=== PATIENT | male | born 1960 | race Caucasian/White ===

== ENCOUNTER → 2016-08-31 | Day surgery (SDC) | payer OTHER ==
[2016-08-29 15:02] VITALS: Ht 177.8 cm; Wt 151.9 kg
--- NOTE | 2016-08-29 15:27 | PAT Medication Instructions ---
Service Date Aug 29, 2016. Current Home Medication List Cyclobenzaprine Hcl (Flexeril), 10 MG PO TID PRN for Pain Meloxicam (Meloxicam), 15 MG PO HS Multiple Vitamins W/ Minerals (Airborne), 1 TAB PO HS Medication Instructions For Your Scheduled Surgery Meloxicam (Meloxicam), 15 MG PO HS (per surgeon for instructions) - Hold the following medications the morning of surgery: Cyclobenzaprine Hcl (Flexeril), 10 MG PO TID PRN for Pain - Take the following medications as scheduled the night before surgery: Multiple Vitamins W/ Minerals (Airborne), 1 TAB PO HS Cyclobenzaprine Hcl (Flexeril), 10 MG PO TID PRN for Pain If you have any questions please call us at [phone] (Megan Jung PA-C) or [phone] or [phone]
[2016-08-29 16:10] LABS: HEMATOCRIT 45.6 % (42-52); MEAN CELL VOLUME 87.9 fL (80-100); MEAN CORPUSCULAR HEMOGLOBIN 29.7 pg (25-34); MEAN CORPUSCULAR HGB CONC 33.8 g/dl (32-36); MEAN PLATELET VOLUME 9.8 fL (7.4-10.4); PLATELET COUNT 244 K/uL (130-400); RED BLOOD COUNT 5.19 M/uL (4.7-6.1); WHITE BLOOD COUNT 10.15 K/uL (4.8-10.8)
[2016-08-29 16:34] LABS: URINE APPEARANCE CLEAR (CLEAR); URINE BILIRUBIN NEG (NEG); URINE COLOR YELLOW; URINE EPITHELIAL CELL AUTO >30 /lpf (0-5); URINE NITRITE NEG (NEG); URINE PH 6.5 (4.5-7.5); UROBILINOGEN NEG (NEG)
[2016-08-29 16:42] LABS: BUN/CREATININE RATIO 15.8 (10-20)
[2016-08-29 16:44] LABS: MANUAL MICROSCOPIC REQUIRED? NO; REVIEW REQ? NO
[2016-08-29 16:47] LABS: POTASSIUM 4.2 mmol/L (3.5-5.1)
[~2016-08-31] VITALS: Ht 177.8 cm; Wt 151.9 kg
[~2016-08-31] MED LIST: ATROPINE SULFATE 0.1 MG/ML 5ML SYR IV PRN; CALC0.2510 PO; CIPR-255 PO; CIPROFLOXACIN 400MG / D5W IV SCH; CYCL10TA6 PO; DEXAMETHASONE SOD INJ 4 MG/ML VIAL ONE; EpHEDrine SULFATE INJ 50 MG/ML AMP IV PRN; FENTANYL CITRATE INJ 50 MCG/1 ML 2 ML VIAL IV PRN; FENTANYL CITRATE INJ 50 MCG/1 ML 2 ML VIAL ONE; HYDR-3419 PO; HYDR-5688 PO; LACTATED RINGER'S 1000ML 1,000 ML IV SCH; LIDOCAINE HCL 2% 2 ML VIAL (20MG/ML) ONE; MELO15TA4 PO; MIDAZOLAM HCL 1 MG/ML 2ML VIAL ONE; MULT1CHW28 PO; MULTCHW PO; ONDANSETRON INJ 2 MG/ML 2 ML VIAL ONE; OXYC-57 PO; OXYCODONE/ACETAMINOPHEN 5-325 TAB PO PRN; PHEN-775 PO; PROPOFOL IV EMULSION 10 MG/ML 20 ML VIAL IV ONE
--- NOTE | 2016-08-31 10:19 | DIAGNOSTIC IMAGING REPORT ---
KUB CLINICAL HISTORY: N20.0 [id number] nephrocalcinosis COMPARISON STUDY: No previous studies for comparison. FINDINGS: Punctate calcification peripheral aspect mid pole left kidney. This measures 2 mm. Calcification lower pole right kidney measuring 11 x 4 mm up. Several pelvic vascular calcifications. Nonobstructive bowel pattern. IMPRESSION: 1. 11 x 4 mm lower pole right renal calcification. 2. 2 mm punctate peripheral mid pole left renal calcification. Electronically signed by: Tc Chacon M.D. 08/31/2016 10:18 AM Dictated Date/Time: 08/31/2016 10:17 AM
--- NOTE | 2016-08-31 12:14 | History & Physical Bridge Note ---
H&P Re-Evaluation Bridge Note: I have examined the patient, reviewed the History & Physical and in the interval since the performance of the History & Physical I have noted the following changes of clinical significance: No changes noted
--- NOTE | 2016-08-31 12:59 | [facility] Post Operative Brief Note ---
Immediate Operative Summary Operative Date Aug 31, 2016. Pre-Operative Diagnosis RIGHT RENAL STONE Post-Operative Diagnosis SAME Procedure(s) Performed RIGHT ESWL Surgeon ABISAI Wagon Driver Surgeon(s) NONE Estimated Blood Loss NONE Findings RIGHT RENAL STONE Specimens NONE
--- NOTE | 2016-08-31 13:01 | Discharge Instructions-SurgCtr ---
Discharge Instructions Date of Service Aug 31, 2016. Visit Reason for Visit: Stones Discharge Discharge Diagnosis / Problem: STONE Discharge Goals Goal(s): Therapeutic intervention Medications Stopped Medications Name(s): Meloxicam, last dose 1 week ago(08/23/16) Activity Recommendations Activity Limitations: resume your previous activity (TAKE IT EASY TODAY) MEDICATIONS: Resume previous medications unless instructed otherwise by your surgeon. Resume pre-ESWL medication except for aspirin, coumadin or other blood thinners. __ Toradol 10 mg every 6 hours for initial pain. __ Lortab 5 mg 1-2 every 4 hours for pain. _X_ Percocet 5 mg 1-2 every 4 hours for pain. __ Macrodantin 50 mg x 3 a day. __ Flomax 1 tab daily one half (1/2) hour after supper. SPECIAL CARE INSTRUCTIONS: 1. Get KUB (x-ray) _X_ day before or day of office visit and bring x-ray to office __ get x-ray 2 days before and tell office you are getting x-rays when you call for the appointment. 2. Strain ALL urine. 3. Please call if you have a fever, chills, severe pain, or constant dribbling of urine. 4. Office phone number . FOLLOW UP VISIT: Please call the office to schedule a follow-up appointment at . Anesthesia . Post Anesthesia Instructions: If you have had General Anesthesia or IV Sedation: * Do not drive today. * Resume driving when surgeon permits. * Do not make important decisions or sign legal documents today. * Call surgeon for: 1. Temperature elevations greater than 101 degrees F. 2. Uncontrollable pain. 3. Excessive bleeding. 4. Persistent nausea and vomiting. 5. Medication intolerance (nausea, vomiting or rash). * For nausea and vomiting use only clear liquids such as: tea, soda, bouillon until nausea subsides, then gradually increase diet as tolerated. * If you have any concerns or questions, call your surgeon's office. If physician is unavailable and it is an emergency, call 911 or go to the nearest emergency room. . Diet Recommendations Home Diet: resume previous diet Procedures Procedures Performed: RIGHT ESWL Pending Studies Studies pending at discharge: no Medical Emergencies . Who to Call and When: Medical Emergencies: If at any time you feel your situation is an emergency, please call 911 immediately. . Non-Emergent Contact Non-Emergency issues call your: Urologist . . "Provider Documentation" section prepared by Benedict Arana. [facility] Drug Monitoring Program Search Results: patient reviewed within database
[2016-08-31 14:11] VITALS: TEMP 36.4
[2016-08-31 14:36] VITALS: BP 132/84; PULSE 57; O2SAT 98
--- NOTE | 2016-08-31 14:37 | Anesthesia Progress Nt - [facility] ---
Anesthesia Post Op Note Date & Time Aug 31, 2016 at 14:36 Vital Signs Pain Intensity: 0 Vital Signs Past 12 Hours Date Time Temp Pulse Resp B/P Pulse Ox O2 Delivery O2 Flow Rate FiO2 08/31/16 14:11 36.4 66 18 148/92 96 Room Air 08/31/16 14:06 67 11 08/31/16 14:06 69 11 96 08/31/16 14:05 153/79 08/31/16 14:05 37.1 96 Room Air 08/31/16 14:01 60 14 100 08/31/16 14:01 58 14 08/31/16 14:00 140/76 08/31/16 13:56 62 15 100 08/31/16 13:56 63 15 08/31/16 13:55 137/79 08/31/16 13:51 63 12 100 08/31/16 13:51 64 12 08/31/16 13:50 147/75 08/31/16 13:49 61 15 100 08/31/16 13:49 61 15 08/31/16 13:45 151/83 08/31/16 13:44 60 14 08/31/16 13:44 60 14 100 08/31/16 13:40 139/102 08/31/16 13:40 37.2 60 16 144/91 97 Mask 6 08/31/16 13:39 71 149/91 98 08/31/16 13:39 71 08/31/16 11:07 36.8 73 18 113/75 97 Room Air Notes Mental Status: alert / awake / arousable, participated in evaluation Pt Amnestic to Procedure: Yes Nausea / Vomiting: adequately controlled Pain: adequately controlled Airway Patency, RR, SpO2: stable & adequate BP & HR: stable & adequate Hydration State: stable & adequate Anesthetic Complications: no major complications apparent
--- NOTE | 2016-09-06 09:37 | OPERATIVE REPORT ---
DATE OF OPERATION: 08/31/2016 PREOPERATIVE DIAGNOSIS: Right renal calculus. POSTOPERATIVE DIAGNOSIS: Same. PROCEDURE: Extracorporeal shockwave lithotripsy. FINDINGS: KUB showed stone right kidney. SURGEON: Dr. Arana. DRAINS: None. COMPLICATIONS: None. SPECIMENS: None. INDICATIONS: The patient is a 55-year-old white male with a right renal stone being brought in for ESWL. DETAILS OF PROCEDURE: The patient was brought to the litho suite. He was correctly identified and the stone was visualized on his most recent x-rays. After the correct time out was performed the patient was positioned over the therapy head. An adequate level of anesthesia was administered. The extracorporeal shockwave lithotripsy treatment was then commenced. Please see the [facility] sheet for complete treatment summary. After completion of the procedure the patient was taken to the recovery room in stable condition. I attest to the content of the Intraoperative Record and any orders documented therein. Any exceptio ns are noted below.
== END | disposition home or self-care (01) ==
LOC: X.SURG 10:18
PROVIDERS: ATTEND Urology
DX: N20.0 Calculus of kidney (principal); N40.1 Benign prostatic hyperplasia with lower urinary tract symptoms; N13.8 Other obstructive and reflux uropathy; N35.9 Urethral stricture, unspecified; Z87.442 Personal history of urinary calculi; Z98.890 Other specified postprocedural states

== ENCOUNTER → 2016-09-17 | Outpatient (CLI) | payer OTHER ==
[~2016-09-17] MED LIST changes: -ATROPINE SULFATE 0.1 MG/ML 5ML SYR IV PRN; -CIPROFLOXACIN 400MG / D5W IV SCH; -DEXAMETHASONE SOD INJ 4 MG/ML VIAL ONE; -EpHEDrine SULFATE INJ 50 MG/ML AMP IV PRN; -FENTANYL CITRATE INJ 50 MCG/1 ML 2 ML VIAL IV PRN; -FENTANYL CITRATE INJ 50 MCG/1 ML 2 ML VIAL ONE; -LACTATED RINGER'S 1000ML 1,000 ML IV SCH; -LIDOCAINE HCL 2% 2 ML VIAL (20MG/ML) ONE; -MIDAZOLAM HCL 1 MG/ML 2ML VIAL ONE; -ONDANSETRON INJ 2 MG/ML 2 ML VIAL ONE; -OXYCODONE/ACETAMINOPHEN 5-325 TAB PO PRN; -PROPOFOL IV EMULSION 10 MG/ML 20 ML VIAL IV ONE
--- NOTE | 2016-09-17 08:43 | DIAGNOSTIC IMAGING REPORT ---
KUB CLINICAL HISTORY: N20.0 [id number] COMPARISON STUDY: No previous studies for comparison. FINDINGS: There is no pathologic bowel dilatation. There are surgical clips in the right upper quadrant consistent with a prior cholecystectomy. There is a right upper quadrant calcification consistent with a renal calculus. This measures 12 mm. There are nonspecific pelvic basin calcifications likely representing phleboliths. IMPRESSION: 12 mm right renal calculus Electronically signed by: Contreras Kirkland M.D. 09/17/2016 8:42 AM Dictated Date/Time: 09/17/2016 8:39 AM
== END | disposition home or self-care (01) ==
LOC: C.RAD 08:18
PROVIDERS: ATTEND Urology
DX: N20.0 Calculus of kidney (principal)

== ENCOUNTER → 2016-09-17 | Outpatient (CLI) | payer OTHER | END | disposition home or self-care (01) | LOC: C.LABSPEC 17:09 | PROVIDERS: ATTEND Urology | DX: N20.0 Calculus of kidney (principal) ==

== ENCOUNTER → 2016-09-21 | Outpatient (CLI) | payer OTHER ==
[~2016-09-21] MED LIST changes: -OXYC-57 PO
--- NOTE | 2016-09-21 08:28 | DIAGNOSTIC IMAGING REPORT ---
KUB CLINICAL HISTORY: Nephrolithiasis. Pre-lithotripsy. FINDINGS: 2 AP abdominal radiographs are compared to study dated 09/17/2016. There is unchanged appearance of a 1.2 cm calculus projecting over the right renal pelvis. No additional calcifications are clearly identified projecting over either kidney or along the course of the ureters. Phleboliths are observed in the pelvis. There is a nonobstructed abdominal bowel gas pattern. Cholecystectomy clips are seen in the right upper quadrant. The bony structures appear intact. IMPRESSION: Unchanged appearance of a 1.2 cm calculus projecting over the right renal pelvis as compared to 09/17/2016. Electronically signed by: Tian Juan M.D. 09/21/2016 8:26 AM Dictated Date/Time: 09/21/2016 8:25 AM
== END | disposition home or self-care (01) ==
LOC: C.RAD 06:55
PROVIDERS: ATTEND Urology
DX: N20.0 Calculus of kidney (principal)

== ENCOUNTER → 2016-09-21 | Day surgery (SDC) | payer OTHER ==
[2016-09-18 14:33] VITALS: Ht 177.8 cm; Wt 151.8 kg
[~2016-09-21] VITALS: Ht 177.8 cm; Wt 151.8 kg
[~2016-09-21] MED LIST changes: +ATROPINE SULFATE 0.1 MG/ML 5ML SYR IV PRN; +DEXAMETHASONE SOD INJ 4 MG/ML VIAL ONE; +EpHEDrine SULFATE INJ 50 MG/ML AMP IV PRN; +FENTANYL CITRATE INJ 50 MCG/1 ML 2 ML VIAL IV PRN; +FENTANYL CITRATE INJ 50 MCG/1 ML 2 ML VIAL ONE; +FLUMAZENIL 0.1 MG/1 ML 10 ML VIAL IV PRN; +HYDROmorphone INJ 2 MG/ML SYR/VIAL IV PRN; +LABETALOL HCL IV 5 MG/ML 20ML IV PRN; +LACTATED RINGER'S 1000ML 1,000 ML IV SCH; +LIDOCAINE HCL 2% 2 ML VIAL (20MG/ML) ONE; +MEPERIDINE HCL 25 MG/ML CARP IV PRN; +MIDAZOLAM HCL 1 MG/ML 2ML VIAL ONE; +NALOXONE HCL 0.4 MG/1 ML VIAL/CARP IV PRN; +ONDANSETRON INJ 2 MG/ML 2 ML VIAL IV PRN; +ONDANSETRON INJ 2 MG/ML 2 ML VIAL ONE; +PHENYLEPHRINE 100MCG/ML 5ML SYR IV PRN; +PROPOFOL IV EMULSION 10 MG/ML 20 ML VIAL IV ONE
[2016-09-21] MEDS: CIPROFLOXACIN 400MG / D5W IV SCH ×2 (08:08→08:52)
--- NOTE | 2016-09-21 10:24 | Discharge Instructions-SurgCtr ---
Discharge Instructions Date of Service Sep 21, 2016. Visit Reason for Visit: Stones Discharge Discharge Diagnosis / Problem: r renal stone Discharge Goals Goal(s): Decrease discomfort, Improve function, Improve disease control Medications Stopped Medications Name(s): HELD MELOXICAM FOR ONE WEEK Activity Recommendations Activity Limitations: per Instructions/Follow-up section (no driving on narcotics) Anesthesia . Post Anesthesia Instructions: If you have had General Anesthesia or IV Sedation: * Do not drive today. * Resume driving when surgeon permits. * Do not make important decisions or sign legal documents today. * Call surgeon for: 1. Temperature elevations greater than 101 degrees F. 2. Uncontrollable pain. 3. Excessive bleeding. 4. Persistent nausea and vomiting. 5. Medication intolerance (nausea, vomiting or rash). * For nausea and vomiting use only clear liquids such as: tea, soda, bouillon until nausea subsides, then gradually increase diet as tolerated. * If you have any concerns or questions, call your surgeon's office. If physician is unavailable and it is an emergency, call 911 or go to the nearest emergency room. . Diet Recommendations Home Diet: resume previous diet Procedures Procedures Performed: Right Extracorporeal Shock Wave Lithotripsy, Repeat - Renal Pending Studies Studies pending at discharge: no Medical Emergencies . Who to Call and When: Medical Emergencies: If at any time you feel your situation is an emergency, please call 911 immediately. . Non-Emergent Contact Non-Emergency issues call your: Urologist (no driving on narcotics) Call Non-Emergent contact if: temperature is above 101, your pain is not controlled . . "Provider Documentation" section prepared by Antoine Arana.
[2016-09-21 11:07] VITALS: TEMP 37.1
[2016-09-21 11:26] VITALS: BP 124/80; PULSE 61; O2SAT 99
--- NOTE | 2016-09-21 11:31 | Anesthesia Progress Nt - [facility] ---
Anesthesia Post Op Note Date & Time Sep 21, 2016 at 11:31 Vital Signs Pain Intensity: 0 Vital Signs Past 12 Hours Date Time Temp Pulse Resp B/P Pulse Ox O2 Delivery O2 Flow Rate FiO2 09/21/16 11:26 61 16 124/80 99 Room Air 09/21/16 11:07 37.1 65 16 124/78 97 Room Air 09/21/16 10:59 74 17 98 09/21/16 10:59 74 17 09/21/16 10:55 141/86 09/21/16 10:54 75 17 98 09/21/16 10:54 73 17 09/21/16 10:54 36.6 09/21/16 10:50 137/77 09/21/16 10:49 93 16 98 09/21/16 10:49 93 16 09/21/16 10:45 137/79 09/21/16 10:44 68 13 09/21/16 10:44 68 13 100 09/21/16 10:40 137/80 09/21/16 10:39 70 18 100 09/21/16 10:39 71 18 09/21/16 10:35 143/77 09/21/16 10:34 75 12 100 09/21/16 10:34 74 12 09/21/16 10:30 141/80 09/21/16 10:29 77 23 09/21/16 10:29 76 23 100 09/21/16 10:27 36.7 70 18 136/76 97 Diffusion Mask 6 09/21/16 07:31 36.8 70 20 133/85 96 Room Air Notes Mental Status: alert / awake / arousable, participated in evaluation Pt Amnestic to Procedure: Yes Nausea / Vomiting: adequately controlled Pain: adequately controlled Airway Patency, RR, SpO2: stable & adequate BP & HR: stable & adequate Hydration State: stable & adequate Anesthetic Complications: no major complications apparent
--- NOTE | 2016-09-21 12:07 | OPERATIVE REPORT ---
DATE OF OPERATION: 09/21/2016 PREOPERATIVE DIAGNOSIS: Right renal stone. POSTOPERATIVE DIAGNOSIS: Same. PROCEDURE PERFORMED: Right ESWL. SURGEON: Dr. Arana. INDICATIONS: The patient is a 55-year-old male with a right renal pelvic stone who is status post ESWL several weeks ago who presents now for repeat ESWL as only a small part of the stone fragmented. The patient had the option of ureteroscopy, but chose ESWL and further time. DESCRIPTION OF THE PROCEDURE: The patient was taken to the cysto suite where anesthesia was administered, he was placed in supine position with Venodyne stockings and machine was used to localize the stone. It was difficult to do anteriorly so the head was relocated to come posteriorly and the stone was visualized in 2 maloney and the patient received 2500 shocks, the majority at level 5. At the end of the procedure, the patient was transferred to the recovery room in stable condition. I attest to the content of the Intraoperative Record and any orders documented therein. Any exceptio ns are noted below.
== END | disposition home or self-care (01) ==
LOC: X.SURG 07:23
PROVIDERS: ATTEND Urology
DX: N20.0 Calculus of kidney (principal); N40.1 Benign prostatic hyperplasia with lower urinary tract symptoms; N13.8 Other obstructive and reflux uropathy; N35.9 Urethral stricture, unspecified; Z98.890 Other specified postprocedural states

== ENCOUNTER → 2016-10-01 | Outpatient (CLI) | payer OTHER ==
[~2016-10-01] MED LIST changes: -ATROPINE SULFATE 0.1 MG/ML 5ML SYR IV PRN; -DEXAMETHASONE SOD INJ 4 MG/ML VIAL ONE; -EpHEDrine SULFATE INJ 50 MG/ML AMP IV PRN; -FENTANYL CITRATE INJ 50 MCG/1 ML 2 ML VIAL IV PRN; -FENTANYL CITRATE INJ 50 MCG/1 ML 2 ML VIAL ONE; -FLUMAZENIL 0.1 MG/1 ML 10 ML VIAL IV PRN; -HYDROmorphone INJ 2 MG/ML SYR/VIAL IV PRN; -LABETALOL HCL IV 5 MG/ML 20ML IV PRN; -LACTATED RINGER'S 1000ML 1,000 ML IV SCH; -LIDOCAINE HCL 2% 2 ML VIAL (20MG/ML) ONE; -MEPERIDINE HCL 25 MG/ML CARP IV PRN; -MIDAZOLAM HCL 1 MG/ML 2ML VIAL ONE; -NALOXONE HCL 0.4 MG/1 ML VIAL/CARP IV PRN; -ONDANSETRON INJ 2 MG/ML 2 ML VIAL IV PRN; -ONDANSETRON INJ 2 MG/ML 2 ML VIAL ONE; -PHENYLEPHRINE 100MCG/ML 5ML SYR IV PRN; -PROPOFOL IV EMULSION 10 MG/ML 20 ML VIAL IV ONE
--- NOTE | 2016-10-01 10:59 | DIAGNOSTIC IMAGING REPORT ---
KUB CLINICAL HISTORY: Nephrolithiasis. COMPARISON STUDY: KUB September 21, 2016. FINDINGS: Pelvic calcifications are unchanged and statistically represent phleboliths. A 1.1 cm calculus within the lower pole of the right kidney is noted. This has likely changed position since exam of September 21, 2016. There are additional small bilateral renal calculi. There are cholecystectomy clips. IMPRESSION: 1. 1.1 cm calculus, likely within the lower pole of the right kidney. 2. Additional smaller bilateral renal calculi. Electronically signed by: Bryan Carrillo M.D. 10/01/2016 10:57 AM Dictated Date/Time: 10/01/2016 10:55 AM
== END | disposition home or self-care (01) ==
LOC: C.RAD 10:29
PROVIDERS: ATTEND Urology
DX: N20.0 Calculus of kidney (principal)

== ENCOUNTER → 2016-12-28 | Outpatient (CLI) | payer OTHER ==
--- NOTE | 2016-12-28 12:00 | DIAGNOSTIC IMAGING REPORT ---
KUB CLINICAL HISTORY: N20.0 nephrocalcinosis COMPARISON STUDY: 10/01/2016 FINDINGS: Unchanging right nephrocalcinosis.. No significant left-sided calcifications, although evaluation of the left urinary tract is limited due to overlying bowel content.. Multiple pelvic vascular calcifications unchanged. Nonobstructive bowel pattern. IMPRESSION: Right nephrocalcinosis unchanged. Poor visibility of the left kidney due to overlying bowel content. Electronically signed by: Tc Chacon M.D. 12/28/2016 11:59 AM Dictated Date/Time: 12/28/2016 11:58 AM
--- NOTE | 2016-12-28 13:32 | DIAGNOSTIC IMAGING REPORT ---
CHEST 2 VIEWS ROUTINE CLINICAL HISTORY: 56 years-old Male presenting with PRE OP. TECHNIQUE: PA and lateral views of the chest were obtained. COMPARISON: None. FINDINGS: Cardiomediastinal silhouette normal. Lungs and pleural spaces clear. Degenerative changes of the thoracic spine. Cholecystectomy clips noted. IMPRESSION: 1. No acute cardiopulmonary disease. Electronically signed by: Joaquin Rice 12/28/2016 1:31 PM Dictated Date/Time: 12/28/2016 1:30 PM
[2016-12-28 14:36] LABS: BASO % 0.4 %; BASO ABS # 0.03 K/uL (0-0.2); COMPLETE YES; EOS % 1.4 %; HEMATOCRIT 45.8 % (42-52); IG% 0.5 %; LYMPH % 16.6 %; LYMPH ABS # 1.33 K/uL (1.2-3.4); MEAN CELL VOLUME 89.8 fL (80-100); MEAN CORPUSCULAR HGB CONC 33.4 g/dl (32-36); MEAN PLATELET VOLUME 10.3 fL (7.4-10.4); MONO % 5.1 %; PLATELET COUNT 279 K/uL (130-400); WHITE BLOOD COUNT 8.02 K/uL (4.8-10.8)
[2016-12-28 14:41] LABS: URINE APPEARANCE CLEAR (CLEAR); URINE BILIRUBIN NEG (NEG); URINE COLOR YELLOW; URINE NITRITE NEG (NEG); URINE SPECIFIC GRAVITY 1.024 (1.000-1.030); UROBILINOGEN NEG (NEG)
[2016-12-28 14:49] LABS: MANUAL MICROSCOPIC REQUIRED? NO; REVIEW REQ? NO
[2016-12-28 15:03] LABS: BLOOD UREA NITROGEN 19 mg/dl (7-18); BUN/CREATININE RATIO 15.8 (10-20); CARBON DIOXIDE 29 mmol/L (21-32); CHLORIDE 106 mmol/L (98-107); GLUCOSE 74 mg/dl (70-99); POTASSIUM 4.2 mmol/L (3.5-5.1); SODIUM 141 mmol/L (136-145)
[2016-12-28 15:08] LABS: PROSTATE SPECIFIC ANTIGEN 0.961 ng/ml (0.000-4.000)
== END | disposition home or self-care (01) ==
LOC: C.RAD 10:41
PROVIDERS: ATTEND Nurse Practitioner Family
DX: N20.0 Calculus of kidney (principal)

== ENCOUNTER 2017-01-07 09:24 | Day surgery (SDC) | payer OTHER ==
[2017-01-01 08:00] VITALS: BMI 47.0
[~2017-01-07] VITALS: Ht 177.8 cm; Wt 147.7 kg
[~2017-01-07 09:24] MED LIST changes: -CIPR-255 PO; +CIPROFLOXACIN / D5W 400 MG IV SCH; -HYDR-3419 PO; -HYDR-5688 PO; +LACTATED RINGER'S 1000ML 1,000 ML IV SCH; -PHEN-775 PO
[2017-01-07 09:57] VITALS: BP 138/79; PULSE 72; TEMP 37; O2SAT 95; Ht 177.8 cm; Wt 147.7 kg
[2017-01-07] MEDS ORDERED: MIDAZOLAM HCL 1 MG/ML 2ML VIAL ONE (10:44)
[2017-01-07] MEDS ORDERED: FENTANYL CITRATE INJ 50 MCG/1 ML 2 ML VIAL ONE (10:44)
[2017-01-07] MEDS ORDERED: FENTANYL CITRATE INJ 50 MCG/1 ML 2 ML VIAL IV PRN (11:15)
[2017-01-07] MEDS ORDERED: HYDROmorphone INJ 1 MG/ML SYR IV PRN (11:15)
[2017-01-07] MEDS ORDERED: ATROPINE SULFATE 0.1 MG/ML 5ML SYR IV PRN (11:15)
[2017-01-07] MEDS ORDERED: ONDANSETRON INJ 2 MG/ML 2 ML VIAL IV PRN (11:15)
[2017-01-07] MEDS ORDERED: EpHEDrine SULFATE INJ 50 MG/ML AMP IV PRN (11:15)
[2017-01-07] MEDS ORDERED: PROPOFOL IV EMULSION 10 MG/ML 20 ML VIAL IV ONE (11:26)
[2017-01-07] MEDS ORDERED: KETOROLAC TROMETHAMINE 30 MG/ML VIAL ONE (11:26)
[2017-01-07] MEDS ORDERED: ONDANSETRON INJ 2 MG/ML 2 ML VIAL ONE (11:26)
[2017-01-07] MEDS ORDERED: DEXAMETHASONE SOD INJ 4 MG/ML VIAL ONE (11:26)
[2017-01-07] MEDS ORDERED: LIDOCAINE HCL 2% 2 ML VIAL (20MG/ML) ONE (11:26)
[2017-01-07] MEDS ORDERED: PHEN-775 PO (12:24)
[2017-01-07] MEDS ORDERED: CIPR-255 PO (12:24)
[2017-01-07] MEDS ORDERED: HYDR-5688 PO (12:24)
[2017-01-07] MEDS ORDERED: SODIUM CHLORIDE 0.9% 1000ML 1,000 ML IV SCH (12:27)
--- NOTE | 2017-01-07 12:27 | Discharge Instructions ---
Discharge Instructions Date of Service Jan 07, 2017. Admission Reason for Admission: Stones Discharge Discharge Diagnosis / Problem: stones Discharge Goals Goal(s): Decrease discomfort, Improve function, Increase independence, Improve disease control, Prevent Disease Progression Activity Recommendations Activity Limitations: per Instructions/Follow-up section Lifting Limitations: none Exercise/Sports Limitations: as tolerated May Resume Sexual Activity: after follow-up appointment Shower/Bathe: no limitations Driving or Machine Use: resume 1 day after discharge . Instructions / Follow-Up Instructions / Follow-Up Please keep your previously scheduled stent removal appointment for Discharge Diet Recommended Diet: Regular Diet Procedures Procedures Performed: Cystoscopy, Urethral Dilation, Right Ureteroscopy, Laser Lithotripsy; Stent Placement Pending Studies Studies pending at discharge: no Medical Emergencies . Who to Call and When: Medical Emergencies: If at any time you feel your situation is an emergency, please call 911 immediately. . Non-Emergent Contact Non-Emergency issues call your: Urologist Call Non-Emergent contact if: you have a fever, temperature is above 101.5, your pain is not controlled, your pain is worsening, wound has increased pain . . "Provider Documentation" section prepared by Vernon Coleman. . VTE Core Measure Inpt VTE Proph given/why not?: Treatment not indicated [place] Drug Monitoring Program Search Results: patient reviewed within database, no issues identified
[2017-01-07] MEDS ORDERED: OXYCODONE/ACETAMINOPHEN 5-325 TAB PO PRN ×2 (12:30)
--- NOTE | 2017-01-07 12:35 | [facility] Operative Report ---
Operative Report Operative Date Jan 07, 2017. Pre-Operative Diagnosis right renal stone Post-Operative Diagnosis Right renal stone; urethral stricture Procedure(s) Performed Cystoscopy, Urethral Dilation, Right Ureteroscopy, Laser Lithotripsy; Stent Placement ([id number]) Surgeon Dr Zepeda Academic Department Chair Surgeon(s) none Estimated Blood Loss 5 cc Findings Wide caliber urethral stricture; healthy appearing bladder; solitary calculus within the right kidney Specimens none per surgeon Drains 6 Ethiopian by 2232 centimeter double-J ureteral stent Anesthesia Gen. Complication(s) None Disposition Recovery Room / PACU (stable) Indications Right renal stone Description of Procedure Rommel Levine was identified in the preoperative holding area, appropriate informed consents were reviewed and completed, and the patient was transported to the operating suite. Upon arrival he received appropriate preoperative antibiotics in the form of ciprofloxacin. Adequate general anesthesia was achieved, and he was placed in dorsal lithotomy position where he was sterilely prepped and draped in standard fashion. To begin the case I passed a 22 Ethiopian cystoscope with 30 lens. Of note he has a history of significant urethral strictures these were visualized again during the cystoscopy. These are drastically improved from where he was 1 year ago however at the extreme bulb I was unable to bypass a wide caliber stricture with the scope. I placed a wire through the scope and guided this into the bladder with fluoroscopic confirmation. I then used S-curve dilators to dilate this urethral stricture to 22 Ethiopian. At that time I repassed the scope without difficulty. Of note the patient is status post TURP and has had a very good result with a widely patent prostatic urethra. I carried out a full inspection of his bladder with 30 and 70 lenses. He has no mucosal abnormalities. Ureteral orifices weren't orthotopic position. I identified the right ureteral orifice and cannulated with a sensor wire and a 10 Ethiopian double-lumen catheter. A second wire was placed through the second port of the double-lumen. I reserved one wire as a safety wire while utilizing other to pass a ureteral access sheath. Of note an opacity was easily visualized within the kidney consistent with the stone seen previously on KUB and CT. Utilizing the axis sheath passed a flexible ureteroscope and performed a full renoscopy. There were no other stones visualized aside from a large renal pelvis calculus. This was discoid in shape. I passed a 400 laser fiber and commenced laser lithotripsy. The stone was fragmented into pieces deemed stable for spontaneous passage. Before concluding my renal portion of the case I performed a full repeat renoscopy and identified no large retained fragments. I then performed a careful exit ureteroscopy while simultaneously withdrawing the ureteral access sheath. There is no evidence of ureteral trauma there were no stones within the ureter. Utilizing my existing safety wire I placed a 6 Ethiopian by 22-32 centimeter double-J ureteral stent. There was excellent control in the kidney as well as the bladder. I decompressed the bladder and concluded the case, he was extubated and taken to the PACU in stable condition. I attest to the content of the Intraoperative Record and any orders documented therein. Any exceptions are noted below.
--- NOTE | 2017-01-07 13:24 | Anesthesiology Progress Note ---
Anesthesia Post Op Note Date & Time Jan 07, 2017 at 13:23 Vital Signs Pain Intensity: 1 Vital Signs Past 12 Hours Date Time Temp Pulse Resp B/P (MAP) Pulse Ox O2 Delivery O2 Flow Rate FiO2 01/07/17 13:08 36.5 01/07/17 13:06 139/76 01/07/17 13:04 72 15 01/07/17 13:04 72 15 93 01/07/17 13:01 142/76 01/07/17 12:59 70 14 94 01/07/17 12:59 70 14 01/07/17 12:56 135/73 01/07/17 12:54 79 20 97 01/07/17 12:54 78 20 01/07/17 12:51 132/75 01/07/17 12:49 72 13 01/07/17 12:49 73 13 95 01/07/17 12:46 133/74 01/07/17 12:44 70 13 01/07/17 12:44 71 13 98 01/07/17 12:41 133/79 01/07/17 12:40 Room Air 01/07/17 12:39 75 14 96 01/07/17 12:39 75 14 01/07/17 12:36 139/79 01/07/17 12:34 84 14 01/07/17 12:34 85 14 97 01/07/17 12:31 146/79 01/07/17 12:29 80 14 99 01/07/17 12:29 79 14 01/07/17 12:26 132/79 01/07/17 12:25 137/80 01/07/17 12:24 81 17 98 01/07/17 12:24 81 17 01/07/17 12:24 36.4 73 14 137/80 98 Mask 10 01/07/17 09:57 37.0 72 16 138/79 (98) 95 Room Air Notes Mental Status: alert / awake / arousable, participated in evaluation Pt Amnestic to Procedure: Yes Nausea / Vomiting: adequately controlled Pain: adequately controlled Airway Patency, RR, SpO2: stable & adequate BP & HR: stable & adequate Hydration State: stable & adequate Anesthetic Complications: no major complications apparent
[2017-01-07 13:30] VITALS: BP 132/75; PULSE 72; TEMP 36.7; O2SAT 96
[2017-01-07] MEDS ORDERED: TAMSULOSIN HCL 0.4 MG CAP PO ONE (14:00)
[2017-01-07 14:30] VITALS: BP 134/82; PULSE 71; TEMP 36.7; O2SAT 96
== END 2017-01-07 15:00 | disposition home or self-care (01) ==
LOC: C.ACU 09:24
PROVIDERS: ATTEND Urology
DX: N20.0 Calculus of kidney (principal); N35.9 Urethral stricture, unspecified; N40.1 Benign prostatic hyperplasia with lower urinary tract symptoms; N13.8 Other obstructive and reflux uropathy; Z79.899 Other long term (current) drug therapy

== ENCOUNTER → 2017-05-06 | Outpatient (CLI) | payer OTHER ==
[~2017-05-06] MED LIST changes: +CIPR-255 PO; -CIPROFLOXACIN / D5W 400 MG IV SCH; +HYDR-5688 PO; -LACTATED RINGER'S 1000ML 1,000 ML IV SCH
--- NOTE | 2017-05-06 11:14 | DIAGNOSTIC IMAGING REPORT ---
KUB CLINICAL HISTORY: N20.0 Nephrolithiasis COMPARISON STUDY: 12/28/2016 FINDINGS: There are surgical clips within the right upper quadrant consistent with a prior cholecystectomy. There is no pathologic bowel dilatation. No renal calculi are visualized. Multiple pelvic basin calcifications while nonspecific likely represent phleboliths. IMPRESSION: No urinary tract calculi identified on conventional radiographic imaging Electronically signed by: Contreras Kirkland M.D. 05/06/2017 11:12 AM Dictated Date/Time: 05/06/2017 11:11 AM
== END | disposition home or self-care (01) ==
LOC: C.RAD 10:46
PROVIDERS: ATTEND Urology
DX: N20.0 Calculus of kidney (principal)